=== PATIENT | male | born 2000 | race Caucasian/White ===

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

== ENCOUNTER 2021-05-17 00:04 | Emergency (ER) | payer OTHER ==
[~2021-05-17 00:04] MED LIST changes: +NAPROSYN500 MG PO
== END 2021-05-17 01:19 | disposition left against medical advice (07) ==
LOC: ER1 00:04
DX: Z53.21 Procedure and treatment not carried out due to patient leaving prior to being seen by health care provider (principal)

== ENCOUNTER 2021-10-17 16:57 | Emergency (ER) | payer OTHER | END 2021-10-17 18:00 | disposition left against medical advice (07) | LOC: ER1 16:57 | DX: Z53.21 Procedure and treatment not carried out due to patient leaving prior to being seen by health care provider (principal) ==